=== PATIENT | female | born 1990 | race African-American/Black ===

== ENCOUNTER 2021-11-05 15:24 | Emergency (ER) | payer MEDICAID ==
[~2021-11-05] VITALS: Ht 162.6 cm; Wt 54.4 kg
[2021-11-05 15:48] VITALS: BP 125/77
--- NOTE | 2021-11-05 16:48 | NUR ---
PT AMBULATED TO ER BED 6
--- NOTE | 2021-11-05 17:00 | NUR ---
31 Y/O F AMBULATED TO BED 6, C/O LEFT LABIA PAIN X 2 DAYS. NKDA
[2021-11-05 17:11] LABS: BILIRUBIN,URINE NEGATIVE (NEGATIVE); BLOOD, URINE TRACE-I (NEGATIVE); COLOR,URINE YELLOW (YELLOW); LEUKOCYTE ESTERASE ,URINE TRACE (NEGATIVE); NITRITE, URINE NEGATIVE (NEGATIVE); UGLUCOSE NEGATIVE (NEGATIVE)
[2021-11-05 17:14] LABS: APPEARANCE,URINE HAZY (CLEAR)
[2021-11-05 17:29] LABS: RBC,URINE 0-5 /HPF (0-5)
[2021-11-05 17:30] LABS: CALCIUM OXALATE CRYSTALS,UR None Seen /HPF (None Seen); COARSE GRANULAR CASTS,URINE None Seen /LPF (None Seen); FINE GRANULAR CASTS,URINE None Seen /LPF (None Seen); HYALINE CASTS, URINE None Seen /LPF (None Seen); OTHER CASTS, URINE None Seen /LPF (None Seen); OTHER CRYSTALS,URINE None Seen /HPF (None Seen); RED BLOOD CELL CASTS,URINE None Seen /LPF (None Seen); TRICHOMONAS,URINE None Seen /HPF (None Seen); TRIPLE PHOSPHATE CRYSTAL,UR None Seen /HPF (None Seen); URIC ACID CRYSTALS,URINE None Seen /HPF (None Seen); URINE AMORPHOUS URATE None Seen /HPF (None Seen); WAXY CASTS,URINE None Seen /LPF (None Seen); YEAST,URINE None Seen /HPF (None Seen)
[2021-11-05] MEDS ORDERED: LIDOCAINE 2% 1000 MG/50 ML VIAL INJ ONE (18:10)
[2021-11-05] MEDS ORDERED: metroNIDAZOLE 500 MG TAB PO ONE (18:10)
[2021-11-05] MEDS ORDERED: cefTRIAXone 500 MG VIAL IM ONE (18:10)
--- NOTE | 2021-11-05 18:10 | NUR ---
Female Manager Printing accompanied female patient for Pelvic Exam.
[2021-11-05] MEDS ORDERED: cefTRIAXone 500 MG in LIDOCAINE MPF 1% 1 ML IM ONE (18:25)
[2021-11-05] MEDS ORDERED: LIDOCAINE MPF 1% 5 ML ONE (18:27)
[2021-11-05] MEDS ORDERED: cefTRIAXone 500 MG VIAL ONE (18:27)
[2021-11-05] MEDS ORDERED: DOXYCYCLINE 100 MG CAP ONE (18:32)
[2021-11-05] MEDS ORDERED: DOXY-690 PO (19:00)
--- NOTE | 2021-11-05 19:00 | NUR ---
LAC TRAY SET UP AT BED SIDE. ERMD NOTIFIED.
[2021-11-05] MEDS ORDERED: HYDROcodone/APAP 10/325 MG 1 TAB TAB PO ONE (19:40)
--- NOTE | 2021-11-05 20:40 | NUR ---
PT RESTING IN BED IN A SUPINE POSTION. PAIN MEDICATION SLIGHTLY TAKING EFFECT AT THIS TIME. PT HAS NO FURTHER NEEDS.
[2021-11-05] MEDS ORDERED: HYDR-5080 PO (20:56)
[2021-11-05] MEDS ORDERED: IBUP-2213 PO (20:56)
[2021-11-05] MEDS ORDERED: DOXYCYCLINE 100 MG CAP PO SCH (21:00)
--- NOTE | 2021-11-05 21:11 | NUR ---
Patient discharged with v/s stable. Written and verbal after care instructions given and explained. Patient alert, oriented and verbalized understanding of instructions. Ambulatory with steady gait. All questions addressed prior to discharge. ID band removed. Patient advised to follow up with PMD. Rx of NORCO, IBUPROFEN, VIBRAMYCIN given. Opportunity to ask questions provided and answered.
[2021-11-05 21:14] VITALS: BP 107/66
== END 2021-11-05 21:11 | disposition home or self-care (01) ==
LOC: MED 15:24
DX: N75.1 Abscess of Bartholin's gland (principal); N39.0 Urinary tract infection, site not specified; N93.9 Abnormal uterine and vaginal bleeding, unspecified
CPT/HCPCS: 36415; 56420; 81001; 81025; 87086; 87210; 87491; 96372; 99284; J0696; J2001

== ENCOUNTER 2022-06-12 03:40 | Emergency (ER) | payer MEDICAID ==
[~2022-06-12] VITALS: Ht 162.6 cm; Wt 59.9 kg
[~2022-06-12 03:40] MED LIST: DOXY-690 PO; HYDR-5080 PO; IBUP-2213 PO
[2022-06-12 03:44] VITALS: BP 125/85
[2022-06-12] MEDS ORDERED: ASPIRIN 325 MG TAB PO ONE (03:50)
[2022-06-12] MEDS ORDERED: ACETAMINOPHEN EXTRA STRENGTH 500 MG TAB PO ONE (03:50)
--- NOTE | 2022-06-12 03:54 | NUR ---
PT TO BED 7 FOLLOWING TRIAGE
[2022-06-12] MEDS ORDERED: ALUMINUM HYD/MAG/SIMETHICONE 30 ML, DICYCLOMINE HCL LIQUID 20 MG, LIDOCAINE VISCOUS 2% ... PO ONE ×3 (03:55)
[2022-06-12] MEDS ORDERED: ALUMINUM HYD/MAG/SIMETHICONE 30 ML UDC ONE (03:59)
[2022-06-12] MEDS ORDERED: DICYCLOMINE HCL LIQUID 10 MG/5 ML UDC ONE (03:59)
--- NOTE | 2022-06-12 04:02 | NUR ---
PT IN GOWN ON BEDSIDE BRAILLE TRANSLATOR
--- NOTE | 2022-06-12 04:05 | NUR ---
C/O mid chest pain x today. Patient reported, went out and states "had a few drink" and had mid chest pain. PMHx: DENIES
[2022-06-12 04:16] LABS: EOSINOPHILS # (AUTO) 0.2 K/uL (0-0.4); EOSINOPHILS % (AUTO) 3.2 % (0.0-4.0); HEMATOCRIT 34.8 % (36-48); HEMOGLOBIN 11.5 g/dL (12.0-16.0); LYMPHOCYTES # (AUTO) 1.7 K/uL (2.5-16.5); LYMPHOCYTES % (AUTO) 35.8 % (20.5-51.1); MEAN CORPUSCULAR HEMOGLOBIN 30 pg (27-31); MEAN CORPUSCULAR HGB CONC 33 g/dL (33-37); MEAN CORPUSCULAR VOLUME 89.1 fL (80-94); MONOCYTES # (AUTO) 0.3 K/uL (0.8-1.0); NEUTROPHILS # (AUTO) 2.5 K/uL (1.8-7.7); PLATELET COUNT (AUTO) 225 K/uL (140-450); RED CELL DISTRIBUTION WIDTH 14.5 % (11.6-13.7); WHITE BLOOD COUNT (AUTO) 4.7 K/uL (4.8-10.8)
--- NOTE | 2022-06-12 04:25 | NUR ---
X-Ray at bedside.
--- NOTE | 2022-06-12 04:25 | NUR ---
Dr. Temple examining patient.
[2022-06-12 04:33] LABS: ALBUMIN 3.4 g/dL (3.4-5.0); ANION GAP 13.1 (8-16); ASPARTATE AMINOTRANSFERASE 13 U/L (15-37); CARBON DIOXIDE 26.6 mmol/L (21-32); CHLORIDE 107 mmol/L (98-107); CREATININE 0.9 mg/dL (0.6-1.3); GFR ARICAN-AMERICAN 92 mL/min (>90); GLUCOSE 109 mg/dL (74-106); POTASSIUM 3.7 mmol/L (3.5-5.1); SODIUM SERUM 143 mmol/L (136-145); TOTAL BILIRUBIN 0.2 mg/dL (0.0-1.0); UREA NITROGEN, BLOOD 9 mg/dL (7-18)
[2022-06-12] MEDS ORDERED: KETOROLAC 60 MG/2 ML VIAL IM ONE ×2 (05:00→05:10)
[2022-06-12] MEDS ORDERED: IBUP-1878 PO (05:11)
[2022-06-12 05:13] VITALS: BP 125/85
--- NOTE | 2022-06-12 05:13 | NUR ---
Patient discharged with v/s stable. Written and verbal after care instructions given and explained. Patient verbalized understanding. Ambulatory with steady gait. All questions addressed prior to discharge. Advised to follow up with PMD.
== END 2022-06-12 05:13 | disposition home or self-care (01) ==
LOC: MED 03:40
DX: R07.89 Other chest pain (principal); Z79.899 Other long term (current) drug therapy; V89.2XXA Person injured in unspecified motor-vehicle accident, traffic, initial encounter; Y93.89 Activity, other specified; Y92.89 Other specified places as the place of occurrence of the external cause; Y99.8 Other external cause status
CPT/HCPCS: 36415; 71045; 80053; 81025; 84484; 85025; 93005; 96372; 99285; J1885; Q0092